=== PATIENT | female | born 1970 | race African-American/Black ===

== ENCOUNTER 2017-11-26 04:12 | Inpatient (IN) | payer OTHER ==
[~2017-11-26] VITALS: Ht 165.1 cm; Wt 58.5 kg
--- NOTE | ~2017-11-26 | HC ---
[facility] [place] [address] CONSULTATION Name: LINDY BLUNT Room #: 448-P ADM IN M.R.#: [id number] Admission: 11/26/17 Attend Phys: Sawyer Grubbs MD Discharge: Date of : 72 Report #: [id number] THIS REPORT FOR: //name// CC: FAM unknown Sawyer Grubbs DATE OF SERVICE: 11/26/2017 REASON FOR PRESENTATION: Anxiety episode. REASON FOR CONSULTATION: Elevated creatinine. HISTORY OF PRESENT ILLNESS: A 46-year-old with past medical history of anxiety. She presented because of an anxiety episode and was having spasms all over her body. This had started yesterday. She also reported to repeated episodes of nausea and vomiting all day long yesterday. She uses marijuana occasionally. No reported previous renal problems other than the fact that she once had an acute kidney injury when she was admitted to [facility]. She does not really know what her kidney function level is. She is not hypertensive. She does not take any nonsteroidal anti-inflammatory medications or any other medications. No recent febrile illnesses. On presentation, she was found to have an elevated creatinine of 5.1 mandating Nephrology consultation. Blood sugar was also elevated. Calcium was significantly elevated at 11.6 with a total protein of 10.9 and an albumin of 5.9. No episodes of hypotension noted. No contrasted studies noted. PAST MEDICAL HISTORY: Anxiety. MEDICATIONS: Diazepam. FAMILY HISTORY: Hypertension. SOCIAL HISTORY: She is a home health aide. She uses marijuana. She also smokes. REVIEW OF SYSTEMS: GENERAL: Significant for anxiety. CARDIOVASCULAR: No chest pain or palpitation. PULMONARY: No cough or hemoptysis. GASTROINTESTINAL: Repeated episodes of nausea and vomiting. GENITOURINARY: No frequency, no urgency, no hesitancy. NEUROLOGICAL: Anxiety, but no syncope. PHYSICAL EXAMINATION: GENERAL: Alert, oriented. VITAL SIGNS: Blood pressure 143/94. [facility] [address] [place] [address] CONSULTATION Name: LINDY BLUNT Room #: 448-P [facility].#: [id number] Admission: 11/26/17 Attend Phys: Sawyer Grubbs MD Discharge: Date of : 72 Report #: [id number] HEAD AND NECK: No jugular venous distention. Dry mucous membrane. CHEST: Clear to auscultation. CARDIOVASCULAR: Regular, with no rub. ABDOMEN: Soft, nontender. LOWER EXTREMITIES: No edema. LABORATORY DATA: Reviewed. BUN 31, creatinine 5.1, calcium 11.6, total protein 10.9, albumin 5.9. She has leukocytosis with a low MCV. No urine studies done. ASSESSMENT, IMPRESSION AND PLAN: 1. Acute kidney injury. 2. Elevated total protein. 3. Hypercalcemia. 4. Anxiety. 5. Leukocytosis. 6. High blood sugar. 7. We will initiate the appropriate workup for her hypercalcemia and acute kidney injury. Her hypercalcemia and hyperproteinemia could be just due to volume depletion. 8. Monitor electrolytes. 9. Avoid nephrotoxins. 10. Workup will be implemented while waiting on her other laboratory values from [facility]. 11. She did have an issue with bilateral adrenal glands in the past and this will need to be addressed. <ELECTRONICALLY SIGNED> By: Dixie Castro MD 11/26/17 [id number] Dixie Castro MD /nt
[~2017-11-26 04:12] MED LIST: ATIVAN1 MG PO; PHENERGAN 25 MG25 M1 PO; POTASSIUM20 PO; ULTRAM 50MG TAB50 MG PO; ZOFRAN ODT4 MG PO
[2017-11-26 04:23] VITALS: BP 122/93
[2017-11-26] MEDS ORDERED: VALIUM5 MG PO (04:30)
[2017-11-26 04:55] LABS: CALCIUM 11.6 mg/dL (8.5-10.1); CREATININE 5.1 mg/dL (0.6-1.0); POTASSIUM 3.5 mmol/L (3.5-5.1)
[2017-11-26 05:01] LABS: ALBUMIN 5.9 g/dL (3.4-5.0); TOTAL BILIRUBIN 0.9 mg/dL (<0.1-1.0); TOTAL PROTEIN 10.9 g/dL (6.4-8.2)
[2017-11-26 05:02] LABS: ABSOLUTE NEUTROPHILS 11.4 thou/uL (1.4-8.2); BASOPHILS 0.8 % (0.0-2.0); HEMOGLOBIN 12.2 gm/dL (12.0-15.0); LYMPHOCYTES 9.5 % (24.0-44.0); MCH 20.3 pg (26.0-34.0); MCHC 31.4 g/dL (28.0-37.0); MCV 64.9 fL (80.0-100.0); MONOCYTES 6.8 % (1.0-8.0); PLATELET COUNT 634 thou/uL (150-400); POLYS 82.9 % (36.0-66.0); RBC 6.01 mil/uL (4.20-5.00); RDW 21.2 % (10.5-14.5); WBC 13.7 thou/uL (4.0-11.0)
[2017-11-26 05:18] LABS: ANISOCYTOSIS 2+; HYPOCHROMASIA 2+; MICROCYTES 3+; POLYCHROMASIA 2+
[2017-11-26 05:40] VITALS: BP 142/101
[2017-11-26 05:51] VITALS: BP 154/94
[2017-11-26 06:15] VITALS: BP 143/94
[2017-11-26 10:46] LABS: CALCIUM 9.2 mg/dL (8.5-10.1); PHOSPHORUS 4.7 mg/dL (2.5-4.9)
[2017-11-26 10:50] LABS: POTASSIUM 3.1 mmol/L (3.5-5.1)
[2017-11-26 10:51] LABS: CREATININE 2.9 mg/dL (0.6-1.0)
[2017-11-26 16:37] VITALS: BP 129/76
[2017-11-26 17:10] LABS: GLYCOHEMOGLOBIN (HGB A1C) 5.2 % (4.8-5.6)
[2017-11-26 17:10] LABS: IgA 378 mg/dL (87-352); IgG 971 mg/dL (700-1600); IgM 47 mg/dL (26-217)
[2017-11-26 21:35] VITALS: BP 113/64
[2017-11-27 04:55] VITALS: BP 114/79
[2017-11-27 05:10] LABS: ABSOLUTE NEUTROPHILS 9.9 thou/uL (1.4-8.2); BASOPHILS 0.5 % (0.0-2.0); EOSINOPHILS 0.2 % (0.0-3.0); HEMATOCRIT 27.9 % (37.0-47.0); LYMPHOCYTES 17.8 % (24.0-44.0); MCH 20.3 pg (26.0-34.0); MCHC 30.7 g/dL (28.0-37.0); MCV 66.2 fL (80.0-100.0); MONOCYTES 6.5 % (1.0-8.0); RBC 4.21 mil/uL (4.20-5.00); WBC 13.2 thou/uL (4.0-11.0)
[2017-11-27 05:11] LABS: HEMOGLOBIN 8.6 gm/dL (12.0-15.0); PLATELET COUNT 426 thou/uL (150-400)
[2017-11-27 05:23] LABS: CALCIUM 9.1 mg/dL (8.5-10.1); POTASSIUM 3.7 mmol/L (3.5-5.1)
[2017-11-27 05:24] LABS: CREATININE 1.2 mg/dL (0.6-1.0)
[2017-11-27 05:44] LABS: ANISOCYTOSIS 2+; HYPOCHROMASIA 2+; LARGE PLATELETS FEW; MICROCYTES 3+; OVALOCYTES 1+; POLYCHROMASIA 1+
[2017-11-27 08:00] VITALS: BP 120/71
[2017-11-27 09:58] LABS: URINE BILIRUBIN NEGATIVE (Negative); URINE BLOOD NEGATIVE (Negative); URINE CLARITY CLEAR; URINE COLOR YELLOW; URINE GLUCOSE-RANDOM* NEGATIVE (Negative); URINE KETONES NEGATIVE (Negative); URINE LEUKOCYTES NEGATIVE (Negative); URINE NITRITE NEGATIVE (Negative); URINE PROTEIN (DIPSTICK) NEGATIVE (Negative); URINE SPECIFIC GRAVITY 1.025 (1.005-1.035); URINE UROBILINOGEN 0.2 E.U./dl (0.2-1.0)
[2017-11-27 10:05] LABS: URINE CREATININE-RANDOM* 300.3 mg/dL; URINE PROTEIN-RANDOM* 36.2 mg/dL (<11.9)
[2017-11-27 15:10] LABS: KAPPA FREE LIGHT CHAINS 20.5 mg/L (3.3-19.4); KAPPA/LAMBDA RATIO 0.51 (0.26-1.65); LAMBDA FREE LIGHT CHAINS 40.3 mg/L (5.7-26.3)
[2017-11-27 16:00] VITALS: BP 114/78
[2017-11-27 21:04] VITALS: BP 118/68
[2017-11-28 03:55] VITALS: BP 113/66
[2017-11-28 05:19] LABS: ABSOLUTE NEUTROPHILS 4.9 thou/uL (1.4-8.2); BASOPHILS 0.4 % (0.0-2.0); EOSINOPHILS 1.2 % (0.0-3.0); HEMATOCRIT 30.6 % (37.0-47.0); HEMOGLOBIN 9.2 gm/dL (12.0-15.0); LYMPHOCYTES 35.3 % (24.0-44.0); MCH 20.2 pg (26.0-34.0); MCV 67.3 fL (80.0-100.0); MONOCYTES 8.5 % (1.0-8.0); PLATELET COUNT 454 thou/uL (150-400); POLYS 54.6 % (36.0-66.0); RBC 4.54 mil/uL (4.20-5.00); WBC 8.9 thou/uL (4.0-11.0)
[2017-11-28 05:29] LABS: ALBUMIN 3.8 g/dL (3.4-5.0); CALCIUM 8.8 mg/dL (8.5-10.1); CREATININE 0.9 mg/dL (0.6-1.0); PHOSPHORUS 2.2 mg/dL (2.5-4.9); POTASSIUM 4.1 mmol/L (3.5-5.1)
[2017-11-28 07:44] LABS: ANISOCYTOSIS 2+; POLYCHROMASIA OCCASIONAL
[2017-11-28 07:45] LABS: HYPOCHROMASIA 3+; MICROCYTES 3+
[2017-11-28 08:00] VITALS: BP 116/59
[2017-11-28] MEDS ORDERED: VISTARIL 25 MG25 M1 PO (12:58)
[2017-11-28] MEDS ORDERED: REMERON15 MG PO (12:58)
[2017-11-28 15:43] VITALS: BP 116/59
[2017-11-29 08:08] LABS: GLOBULIN TOTAL 3.4 g/dL (2.2-3.9); M-SPIKE Not Observed g/dL (Not Observed)
== END 2017-11-28 16:13 | disposition home or self-care (01) | DRG 684 ==
LOC: ER 04:12 → EROBS 05:25 → 4S 05:25
PROVIDERS: Emergency Medicine; Family Medicine; Hospitalist; Nurse Practitioner Family
DX: N17.9 Acute kidney failure, unspecified (principal); F41.9 Anxiety disorder, unspecified; F17.210 Nicotine dependence, cigarettes, uncomplicated; E83.52 Hypercalcemia; D72.829 Elevated white blood cell count, unspecified; E88.09 Other disorders of plasma-protein metabolism, not elsewhere classified; E86.9 Volume depletion, unspecified; E86.1 Hypovolemia; E27.8 Other specified disorders of adrenal gland; K31.89 Other diseases of stomach and duodenum; R11.10 Vomiting, unspecified; F12.10 Cannabis abuse, uncomplicated; F32.9 Major depressive disorder, single episode, unspecified; Z82.49 Family history of ischemic heart disease and other diseases of the circulatory system
CPT/HCPCS: 10195